=== PATIENT | female | born 1930 | race Caucasian/White ===

== ENCOUNTER 2017-03-11 10:24 | Day surgery (SDC) | payer OTHER ==
[2017-03-10 15:00] VITALS: BMI 23.0
[2017-03-11 13:28] VITALS: TEMP 97.6
[2017-03-11 13:44] VITALS: BP 140/60; PULSE 65
== END 2017-03-11 14:19 | disposition home or self-care (01) ==
LOC: JASU-ENDO 10:24
PROVIDERS: ATTEND Internal Medicine Gastroenterology
PROC: 0DJD8ZZ Inspection of Lower Intestinal Tract, Via Natural or Artificial Opening Endoscopic (ICD-10-PCS; principal; 2017-03-11 11:30)
DX: D64.9 Anemia, unspecified (principal); K64.8 Other hemorrhoids

== ENCOUNTER 2017-06-26 09:08 | Inpatient (IN) | payer OTHER ==
--- NOTE | 2017-06-26 09:35 | PDOC ---
History of Present Illness - General Chief Complaint: Pain, Acute Stated Complaint: POST-OP/ ABD PAIN Time Seen by Provider: 06/26/17 09:35 - History of Present Illness Initial Comments: 06/26/17 09:39 Ms. Gill is an 87 yo female with a significant past medical history of DM , Anemia, recent fall with clear head CT Friday and Lack of appetite with endoscopy Friday who presents to the emergency department with a 12 hour history of extreme abdominal pain at rest. She reports no other symptoms. The patient denies chest pain, shortness of breath, headache and dizziness. Denies fever, chills, nausea, vomit, diarrhea and constipation. Denies dysuria, frequency, urgency and hematuria. Allergies: NKDA Past surgical history: Denies Social history: Denies PMD - Dr. Cisneros Past History - Past Medical History Allergies/Adverse Reactions: Allergies Allergy/AdvReac Type Severity Reaction Status Date / Time No Known Allergies Allergy Verified 06/26/17 09:13 Home Medications: Ambulatory Orders Omeprazole 40 mg PO DAILY 03/10/17 Ascorbic Acid [Vitamin C] 500 mg PO DAILY 06/23/17 Ferrous Sulfate 325 mg PO DAILY 06/23/17 Glipizide 5 mg PO DAILY 06/23/17 Megestrol Acetate [Megace -] 40 mg PO DAILY 06/26/17 Metoclopramide HCl [Reglan] 5 mg PO TID 06/26/17 Nitrofurantoin Monohyd/M-Cryst [Macrobid -] 100 mg PO BID #28 capsule 06/26/17 Anemia: Yes (IRON DEFICIENCY) Diabetes: Yes (NIDDM) GI Disorders: Yes (GERD) - Immunization History Immunization Up to Date: Yes - Suicide/Smoking/Psychosocial Hx Smoking History: Never smoked Have you smoked in the past 12 months: No Hx Alcohol Use: No Drug/Substance Use Hx: No Substance Use Type: None Hx Substance Use Treatment: No Review of Systems - Review of Systems Comments:: 06/26/17 09:39 GENERAL/CONSTITUTIONAL: No fever or chills. No weakness. HEAD, EYES, EARS, NOSE AND THROAT: No change in vision. No ear pain or discharge. No sore throat. CARDIOVASCULAR: No chest pain or shortness of breath RESPIRATORY: No cough, wheezing, or hemoptysis. GASTROINTESTINAL: +Extreme abdominal pain at rest. No nausea, vomiting, diarrhea or constipation. GENITOURINARY: No dysuria, frequency, or change in urination. MUSCULOSKELETAL: No joint or muscle swelling or pain. No neck or back pain. SKIN: No rash NEUROLOGIC: No headache, vertigo, loss of consciousness, or change in strength/ sensation. ENDOCRINE: No increased thirst. No abnormal weight change HEMATOLOGIC/LYMPHATIC: No anemia, easy bleeding, or history of blood clots. ALLERGIC/IMMUNOLOGIC: No hives or skin allergy. *Physical Exam - Vital Signs Last Vital Signs Temp Pulse Resp BP Pulse Ox 98.1 F 88 18 146/63 98 06/26/17 09:13 06/26/17 09:13 06/26/17 09:13 06/26/17 09:13 06/26/17 09:13 - Physical Exam Comments: 06/26/17 09:39 GENERAL: Awake, alert, and fully oriented, in no acute distress HEAD: No signs of trauma, normocephalic, atraumatic EYES: PERRLA, EOMI, sclera anicteric, conjunctiva clear ENT: Auricles normal inspection, hearing grossly normal, nares patent, oropharynx clear without exudates. Moist mucosa NECK: Normal ROM, supple, no lymphadenopathy, JVD, or masses LUNGS: No distress, speaks full sentences, clear to auscultation bilaterally HEART: Regular rate and rhythm, normal S1 and S2, no murmurs, rubs or gallops, peripheral pulses normal and equal bilaterally. ABDOMEN: +Exquisitely tender with guarding. Soft, normoactive bowel sounds. No masses EXTREMITIES: Normal inspection, Normal range of motion, no edema. No clubbing or cyanosis. NEUROLOGICAL: Cranial nerves II through XII grossly intact. Normal speech, normal gait, no focal sensorimotor deficits SKIN: Warm, Dry, normal turgor, no rashes or lesions noted. ED Treatment Course - LABORATORY CBC & Chemistry Diagram: 06/26/17 09:46 06/26/17 09:46 Medical Decision Making - Medical Decision Making 06/26/17 13:49 Ms. Gill is an 87 yo patient presenting with severe abdominal pain. CT abdomen/pelvis done to rule out acute causes; patient was resting comfortably after 2 mg morphine until taking oral macrobid. Severe abdominal pain resumed after; will admit to [facility] for overnight observation for pain control. 06/26/17 14:02 06/26/17 14:02 *DC/Admit/Observation/Transfer Diagnosis at time of Disposition: Abdominal pain Qualifiers: Abdominal location: generalized Qualified Code(s): R10.84 - Generalized abdominal pain - Discharge Dispostion Admit: Yes - Prescriptions Prescriptions: Nitrofurantoin Monohyd/M-Cryst [Macrobid -] 100 mg PO BID #28 capsule - Referrals Referrals: Chapo Cisneros MD [Primary Care Provider] -
--- NOTE | 2017-06-26 09:38 | PDOC ---
Attending Attestation - Resident Resident Name: Jos Arauz - HPI HPI: 06/26/17 17:18 Pt presents to the ED complaining of the acute onset of abdominal pain after endoscopy. Denies nausea or vomiting. Having bowel movements. - Physicial Exam PE: 06/26/17 17:18 Abdomen diffusely tender with guarding but no rigidity or rebound. - Medical Decision Making 06/26/17 17:18 Pt presents to the ED with pain and tenderness after endoscopy. Concern for perforation, infection, less likely obstruction.
[2017-06-26] MEDS ORDERED: morphine CARPU-JECT 2 MG/1 ML DISP.SYRIN IVPUSH ONE ×2 (09:54→13:05)
[2017-06-26] MEDS ORDERED: SODIUM CHLORIDE 1,000 ML IV STA (09:58)
[2017-06-26] MEDS ORDERED: morphine CARPU-JECT 2 MG/1 ML DISP.SYRIN ONE (10:14)
[2017-06-26 10:20] LABS: BASOPHIL 1.4 % (0-2.0); MCH 24.2 pg (25.7-33.7); MCHC 31.7 g/dl (32.0-36.0); MEAN CELL VOLUME 76.6 fl (80-96); MEAN PLT VOLUME 7.6 fl (7.5-11.1); NEUTROPHILS 76.5 % (42.8-82.8); PLATELET COUNT 187 K/MM3 (134-434); RDW 21.8 % (11.6-15.6); WHITE BLOOD COUNT 8.3 K/mm3 (4.0-10.0)
[2017-06-26 10:53] LABS: ALBUMIN 2.5 g/dl (3.4-5.0); ALK PHOS 444 U/L (45-117); ANION GAP 11 (8-16); BILIRUBIN,TOTAL 1.4 mg/dL (0.2-1.0); CALCIUM 8.5 mg/dL (8.5-10.1); CO2 22 mmol/L (21-32); CREATININE 0.9 mg/dL (0.55-1.02); GLUCOSE,RANDOM 126 mg/dL (74-106); SGOT/AST 143 U/L (15-37); SGPT/ALT 121 U/L (12-78); TOT PROT 7.1 g/dl (6.4-8.2)
[2017-06-26 11:36] LABS: URINE APPEARANCE SLCLOUDY; URINE BILIRUBIN NEGATIVE (NEGATIVE); URINE BLOOD NEGATIVE (NEGATIVE); URINE COLOR AMBER; URINE GLUCOSE (UA) NEGATIVE (NEGATIVE); URINE KETONE NEGATIVE (NEGATIVE); URINE LEUK ESTERASE NEGATIVE (NEGATIVE); URINE NITRITE POSITIVE (NEGATIVE); URINE UROBILINOGEN NEGATIVE mg/dL (0.2-1.0)
[2017-06-26 11:38] LABS: URINE PROTEIN 1+ (NEGATIVE)
[2017-06-26 11:40] LABS: URINE BACTERIA MANY /hpf (NONE SEEN); URINE MUCUS RARE; URINE WBC 7 /hpf (3-5)
[2017-06-26] MEDS ORDERED: NITROFURANTOIN MACROCRYSTAL 50 MG CAPSULE (FP) PO SCH (12:30)
[2017-06-26] MEDS ORDERED: NITROFURANTOIN MACROCRYSTAL 50 MG CAPSULE (FP) ONE (12:57)
[2017-06-26] MEDS ORDERED: morphine CARPU-JECT 4 MG/1 ML DISP.SYRIN ONE (13:10)
--- NOTE | 2017-06-26 15:44 | EKG ---
Test Reason : Blood Pressure : / mmHG Vent. Rate : 073 BPM Atrial Rate : 073 BPM P-R Int : 166 ms QRS Dur : 086 ms QT Int : 420 ms P-R-T Axes : 031 -20 013 degrees QTc Int : 462 ms NORMAL SINUS RHYTHM NORMAL ECG WHEN COMPARED WITH ECG OF 09-MAY-2009 17:44, NO SIGNIFICANT CHANGE WAS FOUND Confirmed by JD COATS MD ([id number]) on 06/26/2017 3:44:36 PM Referred By: Confirmed By:JD COATS MD
[2017-06-26] MEDS ORDERED: SODIUM CHLORIDE 1,000 ML IV SCH (17:00)
--- NOTE | 2017-06-26 17:03 | HP ---
Admitting History and Physical - Primary Care Physician PCP: [facility] - Admission Chief Complaint: abdominal pain History of Present Illness: Ms. Gill is an 87 yo female with a significant past medical history of DM , Anemia,---is being admitted to the hospital when she presented to emergency room with the chief complaint of having abdominal pain for about 12 hours Patient had colonoscopy done yesterday In the emergency room patient had CAT scan done--which showed ascites and concern of primary hepatocellular carcinoma. there is also portal vein thrombosis Patient given morphine for the pain Liver enzymes are also elevated Patient being admitted for further monitoring I discussed with patients Daughter--who reports that she is having loss of appetite for last few months. Patient seen by me in the emergency room I also discussed case with emergency room physician Patient received morphine and at present comfortable daughter at bedside Patient denies chest pain or shortness of breath No fever or chills No bleeding. History Source: Family Member, Caregiver Limitations to Obtaining History: Clinical Condition - Smoking History Smoking history: Never smoked Have you smoked in the past 12 months: No - Alcohol/Substance Use Hx Alcohol Use: No Home Medications - Allergies Allergies/Adverse Reactions: Allergies Allergy/AdvReac Type Severity Reaction Status Date / Time No Known Allergies Allergy Verified 06/26/17 09:13 - Home Medications Home Medications: Ambulatory Orders Omeprazole 40 mg PO DAILY 03/10/17 Ascorbic Acid [Vitamin C] 500 mg PO DAILY 06/23/17 Ferrous Sulfate 325 mg PO DAILY 06/23/17 Glipizide 5 mg PO DAILY 06/23/17 Megestrol Acetate [Megace -] 40 mg PO DAILY 06/26/17 Metoclopramide HCl [Reglan] 5 mg PO TID 06/26/17 Nitrofurantoin Monohyd/M-Cryst [Macrobid -] 100 mg PO BID #28 capsule 06/26/17 Family Disease History - Family Disease History Family History: Unable to Obtain Review of Systems - Review of Systems Constitutional: reports: Loss of Appetite, Malaise, Unintentional Wgt. Loss, Weakness Eyes: reports: No Symptoms Neck: reports: No Symptoms Cardiovascular: reports: No Symptoms Respiratory: reports: No Symptoms Gastrointestinal: reports: Abdominal Pain, Nausea Genitourinary: reports: No Symptoms Neurological: reports: No Symptoms Psychiatric: reports: Anxiety Physical Examination Vital Signs: Vital Signs Temperature 98.1 F 06/26/17 09:13 Pulse Rate 88 06/26/17 09:13 Respiratory Rate 18 06/26/17 09:13 Blood Pressure 146/63 06/26/17 09:13 O2 Sat by Pulse Oximetry (%) 98 06/26/17 09:13 Constitutional: Yes: No Distress, Anxious Eyes: Yes: Conjunctiva Clear Neck: Yes: Supple, Trachea Midline Cardiovascular: Yes: Regular Rate and Rhythm Respiratory: Yes: CTA Bilaterally Gastrointestinal: Yes: Soft (very tender right upper quadrant. No rebound Bowel sounds present) Edema: No Neurological: Yes: Alert Psychiatric: Yes: Alert Imaging - Results Chest X-ray: Report Reviewed Cat Scan: Report Reviewed Problem List - Problems (1) Abdominal pain Code(s): R10.9 - UNSPECIFIED ABDOMINAL PAIN Qualifiers: Qualified Code(s): R10.84 - Generalized abdominal pain (2) Hepatocellular carcinoma Code(s): C22.0 - LIVER CELL CARCINOMA (3) Portal vein thrombosis Code(s): I81 - PORTAL VEIN THROMBOSIS (4) Ascites Code(s): R18.8 - OTHER ASCITES (5) Diabetes Code(s): E11.9 - TYPE 2 DIABETES MELLITUS WITHOUT COMPLICATIONS Assessment/Plan admit to [facility]. Orders written. pain most likely due to hepatocellular carcinoma--- likely primary Needs further workup ultrasound liver GI consult Pain control Clear liquid diet Zofran for nausea Will not treat portal vein thrombosis with anticoagulations as risk of bleeding is high Monitor blood sugar Overall condition guarded/ due to advanced age Discussed with patient's daughter also was bedside I also discussed with patient's primary doctor Further recommendations will be guided by clinical course
[2017-06-26] MEDS ORDERED: ONDANSETRON 4 MG/2 ML VIAL IVPB PRN (17:12)
[2017-06-26] MEDS: morphine CARPU-JECT 2 MG/1 ML DISP.SYRIN IVPUSH PRN (20:22)
[2017-06-26] MEDS: HEPARIN NA (PORCINE) 5,000 UNITS/ML 1ML VIAL SQ SCH (22:45)
[2017-06-27] MEDS: INSULIN SLIDING SCALE (NOVOLOG) 1 VIAL SQ SCH ×3 (06:21→17:40)
[2017-06-27 06:41] VITALS: BMI 21.4
[2017-06-27 08:14] LABS: BASOPHIL 1.1 % (0-2.0); EOSINOPHIL 1.1 % (0-4.5); MCHC 30.9 g/dl (32.0-36.0); MEAN CELL VOLUME 77.7 fl (80-96); MEAN PLT VOLUME 7.6 fl (7.5-11.1); NEUTROPHILS 78.7 % (42.8-82.8); PLATELET COUNT 148 K/MM3 (134-434); RDW 20.9 % (11.6-15.6); WHITE BLOOD COUNT 6.8 K/mm3 (4.0-10.0)
[2017-06-27 08:26] LABS: INR 1.42 (0.82-1.09); PROTHROMBIN TIME (PATIENT) 15.7 SEC (9.98-11.88)
[2017-06-27 08:55] LABS: ALBUMIN 2.1 g/dl (3.4-5.0); ANION GAP 11 (8-16); CALCIUM 7.6 mg/dL (8.5-10.1); CO2 21 mmol/L (21-32); CREATININE 0.8 mg/dL (0.55-1.02); GLUCOSE,RANDOM 73 mg/dL (74-106); MAGNESIUM 1.9 mg/dL (1.8-2.4); SGOT/AST 116 U/L (15-37); SGPT/ALT 100 U/L (12-78)
[2017-06-27 08:57] LABS: ALK PHOS 410 U/L (45-117); BILIRUBIN,TOTAL 1.9 mg/dL (0.2-1.0); TOT PROT 6.3 g/dl (6.4-8.2)
[2017-06-27] MEDS: HEPARIN NA (PORCINE) 5,000 UNITS/ML 1ML VIAL SQ SCH ×2 (10:25→21:20)
--- NOTE | 2017-06-27 11:27 | PN ---
Progress Note (short form) - Note Progress Note: patient seen and examined today Family at bedside Looks better still having a lot of pain Vital Signs Temp 97.5 F L 06/27/17 08:40 Pulse 78 06/27/17 08:40 Resp 14 06/27/17 08:40 BP 116/58 06/27/17 08:40 Pulse Ox 98 06/26/17 22:00 Intake & Output 06/26/17 06/26/17 06/27/17 11:59 23:59 11:59 Intake Total 532 664 Balance 532 664 Weight 120 lb 120 lb 12.8 oz Intake: IV 332 664 Normal Saline - 1,000 ml 332 664 @ 83 mls/hr IV [facility] Rx#:[id number] Oral 200 Other: Voiding Method Toilet Toilet # Unmeasured Voids Void 2 2 Bowel Movement No Height 5 ft 3 in 5 ft 3 in Body Mass Index (BMI) 21.2 21.4 Weight Measurement Method Est/Stated by Patient Active Medications Heparin Sodium (Porcine) (Heparin -) 5,000 unit SQ BID [facility] Last Admin: 06/27/17 10:25 Dose: 5,000 unit Potassium Chloride/Dextrose/Sod Cl (D5-1/2ns+20 Meq Kcl -) 1,000 mls @ 100 mls/ hr IV [facility] Insulin Aspart (Novolog Vial Sliding Scale -) 1 vial SQ TIDAC [facility] PRN Reason: Protocol Last Admin: 06/27/17 06:21 Dose: Not Given Morphine Sulfate (Morphine Injection -) 2 mg IVPUSH Q4H PRN PRN Reason: PAIN LEVEL 6-10 Last Admin: 06/26/17 20:22 Dose: 2 mg Ondansetron HCl (Zofran Injection) 4 mg IVPB Q6H PRN PRN Reason: NAUSEA CBC, BMP 06/27/17 07:00 06/27/17 07:00 u/s noted Physical Examination Constitutional: Yes: No Distress, Anxious Eyes: Yes: Conjunctiva Clear Neck: Yes: Supple, Trachea Midline Cardiovascular: Yes: Regular Rate and Rhythm Respiratory: Yes: CTA Bilaterally Gastrointestinal: Yes: Soft (very tender right upper quadrant. No rebound Bowel sounds present)--not letting me touch Edema: No Neurological: Yes: Alert Psychiatric: Yes: Alert Imaging - Results Chest X-ray: Report Reviewed Cat Scan: Report Reviewed Problem List - Problems (1) Abdominal pain Code(s): R10.9 - UNSPECIFIED ABDOMINAL PAIN Qualifiers: Qualified Code(s): R10.84 - Generalized abdominal pain (2) Hepatocellular carcinoma Code(s): C22.0 - LIVER CELL CARCINOMA (3) Portal vein thrombosis Code(s): I81 - PORTAL VEIN THROMBOSIS (4) Ascites Code(s): R18.8 - OTHER ASCITES (5) Diabetes Code(s): E11.9 - TYPE 2 DIABETES MELLITUS WITHOUT COMPLICATIONS Assessment/Plan clinically same extensive talk with the patient's family--Spent about 30 minutes in discussion-- Patient' daughter/son goal of care/etc. discussed Patient's family would like to get oncology consult for now not eating well--but wants to read advance diet Change fluids--to D5 Pain control Will follow. GI to follow Problem List - Problems (1) Abdominal pain Code(s): R10.9 - UNSPECIFIED ABDOMINAL PAIN Qualifiers: Qualified Code(s): R10.84 - Generalized abdominal pain (2) Hepatocellular carcinoma Code(s): C22.0 - LIVER CELL CARCINOMA (3) Portal vein thrombosis Code(s): I81 - PORTAL VEIN THROMBOSIS (4) Ascites Code(s): R18.8 - OTHER ASCITES (5) Diabetes Code(s): E11.9 - TYPE 2 DIABETES MELLITUS WITHOUT COMPLICATIONS
[2017-06-27] MEDS: morphine CARPU-JECT 2 MG/1 ML DISP.SYRIN IVPUSH PRN ×2 (13:46→19:47)
[2017-06-27] MEDS ORDERED: DEXAMETHASONE SOD PHOSPHATE 4 MG/1 ML VIAL IVPB ONE (15:38)
[2017-06-27] MEDS: D5-1/2NS+20 MEQ KCL - 1,000 ML IV SCH (16:08)
--- NOTE | 2017-06-27 17:26 | CONSULT ---
Consult Consult Specialty:: Oncology Reason for Consultation:: Image finding of possible Primary HCC - History of Present Illness Chief Complaint: Abdominal pain History of Present Illness: Ms. Gill is an 87 yo female with a significant past medical history of DM , Anemia, recent fall Friday with clear head CT Friday and Lack of appetite with endoscopy Friday who presents to the emergency department with a 12 hour history of extreme abdominal pain at rest. She reports no other symptoms. The patient denies chest pain, shortness of breath, headache and dizziness. Denies fever, chills, nausea, vomit, diarrhea and constipation. Denies dysuria, frequency, urgency and hematuria. Being w/u for weght loss , anemia , s.p egd , colonoscopy, with EGD w/ varices. Patient seen and examined. Family at bedside. pT in pain - History Source History Provided By: Patient, Family Member, Medical Record - Alcohol/Substance Use Hx Alcohol Use: No - Smoking History Smoking history: Never smoked Have you smoked in the past 12 months: No Home Medications - Allergies Allergies/Adverse Reactions: Allergies Allergy/AdvReac Type Severity Reaction Status Date / Time No Known Allergies Allergy Verified 06/26/17 09:13 - Home Medications Home Medications: Ambulatory Orders Omeprazole 40 mg PO DAILY 03/10/17 Ascorbic Acid [Vitamin C] 500 mg PO DAILY 06/23/17 Ferrous Sulfate 325 mg PO DAILY 06/23/17 Glipizide 5 mg PO DAILY 06/23/17 Megestrol Acetate [Megace -] 40 mg PO DAILY 06/26/17 Metoclopramide HCl [Reglan] 5 mg PO TID 06/26/17 Nitrofurantoin Monohyd/M-Cryst [Macrobid -] 100 mg PO BID #28 capsule 06/26/17 Review of Systems - Review of Systems Constitutional: reports: Malaise, Unintentional Wgt. Loss HENT: reports: No Symptoms Gastrointestinal: reports: Abdominal Pain Physical Exam Vital Signs: Vital Signs Temperature 98.0 F 06/27/17 14:56 Pulse Rate 82 06/27/17 14:56 Respiratory Rate 18 06/27/17 14:56 Blood Pressure 112/60 06/27/17 14:56 O2 Sat by Pulse Oximetry (%) 96 06/27/17 09:00 Constitutional: Yes: Anxious, Moderate Distress HENT: Yes: Other (bruise around the right eye) Neck: Yes: Supple Cardiovascular: Yes: Regular Rate and Rhythm Respiratory: Yes: Regular (RUQ tenderness, distended abdomen) Edema: No Labs: CBC, BMP 06/27/17 07:00 06/27/17 07:00 Imaging - Results Cat Scan: Report Reviewed, Image Reviewed Assessment/Plan New diagnosis of metastatic cancer ( image evidence ) in and elderly woman with poor PS I have spent close to 60minutes with the family members with permission from the pt ( daughter in law, grandsons and would be grand daughter in law). I have discussed the following : -The likely diagnosis of metastatic cancer with abnormal LFTs, coags and causing portal vein thrombus , splenomegaly in turn causing the abdominal pain and ascites. -The treatment of portal vein thrombosis was discussed , which includes the initiation of systemic Ac eg with lovenox. Explained in detail of the risks of doing so would put her at high risk of bleeding daryl in the setting of liver disease/splenomegaly and coagulopathy. -The definitive diagnosis needs of a malignancy is through a biopsy. Also have explained that she would be poor candidate for systemic Rx -The ascites could be assessed for drainage for palliation purpose and the possibility of a catheter placement for palliation after reversal of the INR. -Best supportive care focussing on comfort and pain control given advanced age and quality of life -They have not discussed with the pt in the past about advance directives and the pt presently was in pain to discuss. -The part of the family that I have discussed asked me first to help her pain and the decision on the other they mentioned that have to discuss with all the other family members before taking a decision. -for pain control, i have ordered dex 4mg q12h IV so that it would help the pain daryl in the RUQ while continuing the morphine. -For lab work -If Best supportive care is decided, palliative care to be consulted. Have discussed this with over phone and also communicated with RN.
--- NOTE | 2017-06-27 19:26 | CON.GI ---
Consult Consult Specialty:: GI Referred by:: [facility] Reason for Consultation:: abdominal pain - History of Present Illness Chief Complaint: abdominal pain History of Present Illness: 87 F with h/o DM and anemia who had EGD and colonoscopy as outpatient on 06/24 to evaluate abdominal pain and weight loss over the past several months. The EGD revealed varices and a subsequent CT revealed what appears to be significant mets to the liver from an as yet unknown primary although there is a questionable renal mass and a pascual-pancreatic mass. Her family is present. There was some thought initially that her pain might have been due to a perforation from the procedures, but CT showed no evidence of that, with no free air present in the abdomen. - History Source History Provided By: Family Member, Medical Record - Alcohol/Substance Use Hx Alcohol Use: No - Smoking History Smoking history: Never smoked Have you smoked in the past 12 months: No Home Medications - Allergies Allergies/Adverse Reactions: Allergies Allergy/AdvReac Type Severity Reaction Status Date / Time No Known Allergies Allergy Verified 06/26/17 09:13 - Home Medications Home Medications: Ambulatory Orders Omeprazole 40 mg PO DAILY 03/10/17 Ascorbic Acid [Vitamin C] 500 mg PO DAILY 06/23/17 Ferrous Sulfate 325 mg PO DAILY 06/23/17 Glipizide 5 mg PO DAILY 06/23/17 Megestrol Acetate [Megace -] 40 mg PO DAILY 06/26/17 Metoclopramide HCl [Reglan] 5 mg PO TID 06/26/17 Nitrofurantoin Monohyd/M-Cryst [Macrobid -] 100 mg PO BID #28 capsule 06/26/17 Physical Exam-GI Vital Signs: Vital Signs Temperature 98.0 F 06/27/17 14:56 Pulse Rate 82 06/27/17 14:56 Respiratory Rate 18 06/27/17 14:56 Blood Pressure 112/60 06/27/17 14:56 O2 Sat by Pulse Oximetry (%) 96 06/27/17 09:00 Constitutional: Yes: Well Nourished Cardiovascular: Yes: Regular Rate and Rhythm Respiratory: Yes: CTA Bilaterally ...Auscultate: Yes: Normoactive Bowel Sounds Neurological: Yes: Confusion Labs: CBC, BMP 06/27/17 07:00 06/27/17 07:00 INR, PTT INR 1.42 (0.82-1.09) H 06/27/17 07:00 Imaging - Results Cat Scan: Report Reviewed (as noted) Assessment/Plan 87 F with above history now with what appears to be a newly diagnosed metastatic malignancy. Recommend ongoing pain meds for likely cancer-related pain. Oncology f/u and goals of care need to be defined. Will see prn
[2017-06-28] MEDS: INSULIN SLIDING SCALE (NOVOLOG) 1 VIAL SQ SCH ×3 (06:43→17:07)
[2017-06-28] MEDS ORDERED: INSULIN (NOVOLOG) ASPART 100 UNITS/ML 10ML VIAL ONE (07:02)
[2017-06-28 08:09] LABS: BASOPHIL 0.5 % (0-2.0); EOSINOPHIL 0.5 % (0-4.5); MCH 24.4 pg (25.7-33.7); MCHC 31.6 g/dl (32.0-36.0); MEAN CELL VOLUME 77.3 fl (80-96); MEAN PLT VOLUME 7.5 fl (7.5-11.1); NEUTROPHILS 78.1 % (42.8-82.8); PLATELET COUNT 161 K/MM3 (134-434); WHITE BLOOD COUNT 7.1 K/mm3 (4.0-10.0)
[2017-06-28 08:37] LABS: INR 1.53 (0.82-1.09)
[2017-06-28 08:40] LABS: ACTIVATED PTT 30.7 SECONDS (26.9-34.4)
[2017-06-28 09:04] LABS: ANION GAP 8 (8-16); BILIRUBIN,TOTAL 1.2 mg/dL (0.2-1.0); CALCIUM 7.3 mg/dL (8.5-10.1); CO2 23 mmol/L (21-32); CREATININE 0.9 mg/dL (0.55-1.02); GLUCOSE,RANDOM 200 mg/dL (74-106); SGOT/AST 113 U/L (15-37); SGPT/ALT 100 U/L (12-78); TOT PROT 6.2 g/dl (6.4-8.2)
[2017-06-28 09:05] LABS: ALK PHOS 401 U/L (45-117)
[2017-06-28] MEDS: HEPARIN NA (PORCINE) 5,000 UNITS/ML 1ML VIAL SQ SCH (10:50)
[2017-06-28] MEDS: DEXAMETHASONE SOD PHOSPHATE 4 MG/1 ML VIAL IVPB SCH ×2 (10:50→22:36)
[2017-06-28] MEDS: D5-1/2NS+20 MEQ KCL - 1,000 ML IV SCH ×2 (12:18→17:06)
[2017-06-28] MEDS ORDERED: PT OWN MED DRAWER 7, Y5N ONE (13:21)
[2017-06-28] MEDS: morphine CARPU-JECT 2 MG/1 ML DISP.SYRIN IVPUSH PRN ×2 (13:26→22:31)
--- NOTE | 2017-06-28 13:50 | PN ---
Progress Note (short form) - Note Progress Note: pt seen/ examined says pain better- but still hurts a lot all f/u noted. oncology consult noted--had discussed yesterday. Vital Signs Temp 98.6 F 06/28/17 10:00 Pulse 70 06/28/17 10:00 Resp 18 06/28/17 10:00 BP 130/72 06/28/17 10:00 Pulse Ox 97 06/27/17 21:00 Intake & Output 06/27/17 06/28/17 06/28/17 23:59 11:59 23:59 Intake Total 720 1625 Balance 720 1625 Intake: IV 1200 D5-1/2Ns+20 Meq KCl - 1, 1200 000 ml @ 100 mls/hr IV [facility] Rx#:[id number] Oral 720 425 Other: Voiding Method Toilet Toilet # Unmeasured Voids Void 1 2 Bowel Movement No No Active Medications Dexamethasone Sodium Phosphate (Decadron Injection -) 4 mg IVPB BID [facility] Stop: 07/02/17 10:00 Last Admin: 06/28/17 10:50 Dose: 4 mg Heparin Sodium (Porcine) (Heparin -) 5,000 unit SQ BID [facility] Last Admin: 06/28/17 10:50 Dose: 5,000 unit Potassium Chloride/Dextrose/Sod Cl (D5-1/2ns+20 Meq Kcl -) 1,000 mls @ 100 mls/ hr IV [facility] Last Admin: 06/28/17 12:18 Dose: Not Given Insulin Aspart (Novolog Vial Sliding Scale -) 1 vial SQ TIDAC [facility] PRN Reason: Protocol Last Admin: 06/28/17 12:16 Dose: Not Given Morphine Sulfate (Morphine Injection -) 2 mg IVPUSH Q4H PRN PRN Reason: PAIN LEVEL 6-10 Last Admin: 06/28/17 13:26 Dose: 2 mg Ondansetron HCl (Zofran Injection) 4 mg IVPB Q6H PRN PRN Reason: NAUSEA CBC, BMP 06/28/17 07:00 06/28/17 07:00 Physical Examination Constitutional: Yes: No Distress, comfortable Eyes: Yes: Conjunctiva Clear Neck: Yes: Supple, Trachea Midline Cardiovascular: Yes: Regular Rate and Rhythm Respiratory: Yes: CTA Bilaterally Gastrointestinal: Yes: Soft (tender right upper quadrant. No rebound Bowel sounds present)-- Edema: No Neurological: Yes: Alert Psychiatric: Yes: Alert Imaging - Results Chest X-ray: Report Reviewed Cat Scan: Report Reviewed Assessment/Plan clinically litttle better eating better- a little continue fluids steroids gi prophylaxis add basal insulin Problem List - Problems (1) Abdominal pain Code(s): R10.9 - UNSPECIFIED ABDOMINAL PAIN Qualifiers: Qualified Code(s): R10.84 - Generalized abdominal pain (2) Hepatocellular carcinoma Code(s): C22.0 - LIVER CELL CARCINOMA (3) Portal vein thrombosis Code(s): I81 - PORTAL VEIN THROMBOSIS (4) Ascites Code(s): R18.8 - OTHER ASCITES (5) Diabetes Code(s): E11.9 - TYPE 2 DIABETES MELLITUS WITHOUT COMPLICATIONS
--- NOTE | 2017-06-28 21:22 | PN ---
Progress Note (short form) - Note Progress Note: Patient seen and exained Denies any complaints Last Vital Signs Temp Pulse Resp BP Pulse Ox 98.1 F 90 18 125/75 98 06/28/17 18:00 06/28/17 18:00 06/28/17 18:00 06/28/17 18:00 06/28/17 09:00 Cor: RSR, No murmurs, No gallops Lungs: Clear to P&A Abd: Soft, Normal bowel sounds, No organomegaly Ext:No significant edema Skin: No rashes, Integument intact Abnormal Lab Results 06/28/17 06/28/17 06/28/17 07:00 07:00 07:00 Hgb 8.8 L Hct 27.9 L MCV 77.3 L MCH 24.4 L MCHC 31.6 L RDW 21.0 H PT with INR 17.00 H INR 1.53 H Random Glucose 200 H D Calcium 7.3 L Total Bilirubin 1.2 H D AST 113 H ALT 100 H Alkaline Phosphatase 401 H Total Protein 6.2 L Albumin 2.0 L Active Medications Generic Name Dose Route Start Last Admin Trade Name Freq PRN Reason Stop Dose Admin Dexamethasone Sodium Phosphate 4 mg 06/28/17 10:00 06/28/17 10:50 Decadron Injection - IVPB 07/02/17 10:00 4 mg BID [facility] Administration Potassium Chloride/Dextrose/Sod Cl 1,000 mls @ 100 mls/hr 06/27/17 11:30 17:06 D5-1/2ns+20 Meq Kcl - IV 100 mls/hr [facility] Administration Insulin Aspart 1 vial 06/27/17 07:00 06/28/17 17:07 Novolog Vial Sliding Scale - SQ 7 units TIDAC [facility] Administration Protocol Insulin Detemir 10 units 06/28/17 22:00 Levemir Vial SQ HS [facility] Morphine Sulfate 2 mg 06/26/17 16:51 06/28/17 13:26 Morphine Injection - IVPUSH 2 mg Q4H PRN Administration PAIN LEVEL 6-10 Ondansetron HCl 4 mg 06/26/17 17:12 Zofran Injection IVPB Q6H PRN NAUSEA A/P 87 y/o patient with New diagnosis of metastatic cancer by imaging . elderly woman with poor PS Patients daughter called today she is in agreement with planned paracentesis on Friday discussed about lovenox for portal vein thrombosis and SMV thrombosis. Pain control will discuss ith IR regarding palliative procedures? paracentesis palliative care consult
[2017-06-28] MEDS: INSULIN DETEMIR 100 UNITS/ML MDV SQ SCH (22:36)
[2017-06-28] MEDS: ENOXAPARIN NA (PORCINE) 60 MG/0.6 ML DISP.SYRIN SQ SCH (22:37)
[2017-06-29] MEDS: D5-1/2NS+20 MEQ KCL - 1,000 ML IV SCH ×2 (03:07→11:33)
[2017-06-29] MEDS ORDERED: INSULIN (NOVOLOG) ASPART 100 UNITS/ML 10ML VIAL ONE ×2 (06:06→06:33)
[2017-06-29] MEDS: INSULIN SLIDING SCALE (NOVOLOG) 1 VIAL SQ SCH ×3 (06:13→17:28)
[2017-06-29 08:06] LABS: BASOPHIL 0.8 % (0-2.0); MCH 24.4 pg (25.7-33.7); MCHC 31.5 g/dl (32.0-36.0); MEAN CELL VOLUME 77.3 fl (80-96); MEAN PLT VOLUME 8.1 fl (7.5-11.1); NEUTROPHILS 83.9 % (42.8-82.8); PLATELET COUNT 138 K/MM3 (134-434); WHITE BLOOD COUNT 6.4 K/mm3 (4.0-10.0)
[2017-06-29 08:31] LABS: INR 1.46 (0.82-1.09); PROTHROMBIN TIME (PATIENT) 16.2 SEC (9.98-11.88)
[2017-06-29 08:35] LABS: ALK PHOS 350 U/L (45-117); ANION GAP 8 (8-16); BILIRUBIN,TOTAL 0.8 mg/dL (0.2-1.0); CALCIUM 7.4 mg/dL (8.5-10.1); CO2 24 mmol/L (21-32); CREATININE 0.8 mg/dL (0.55-1.02); GLUCOSE,RANDOM 216 mg/dL (74-106); SGOT/AST 98 U/L (15-37); SGPT/ALT 93 U/L (12-78); TOT PROT 5.9 g/dl (6.4-8.2)
[2017-06-29] MEDS: ENOXAPARIN NA (PORCINE) 60 MG/0.6 ML DISP.SYRIN SQ SCH ×2 (09:35→21:26)
[2017-06-29] MEDS: DEXAMETHASONE SOD PHOSPHATE 4 MG/1 ML VIAL IVPB SCH ×2 (09:36→21:26)
--- NOTE | 2017-06-29 15:06 | PN ---
Progress Note (short form) - Note Progress Note: pt seen/ examined says pain better- family at bedside oncology f/u noted--. Vital Signs Temp 98.0 F 06/29/17 14:46 Pulse 82 06/29/17 14:46 Resp 18 06/29/17 09:36 BP 136/70 06/29/17 14:46 Pulse Ox 100 06/29/17 09:00 Intake & Output 06/28/17 06/29/17 06/29/17 23:59 11:59 23:59 Intake Total 1755 1525 450 Balance 1755 1525 450 Intake: IV 1000 1100 D5-1/2Ns+20 Meq KCl - 1, 1000 1100 000 ml @ 100 mls/hr IV [facility] Rx#:[id number] IVPB 50 Oral 705 425 450 Other: Voiding Method Toilet Toilet # Unmeasured Voids Void 1 2 3 Bowel Movement No No No CBC, BMP 06/29/17 07:30 06/29/17 07:30 INR, PTT INR 1.46 (0.82-1.09) H 06/29/17 07:30 Fibrinogen 337.0 mg/dL (238-498) 06/29/17 07:30 Physical Examination Constitutional: Yes: No Distress, comfortable. Eyes: Yes: Conjunctiva Clear Neck: Yes: Supple, Trachea Midline Cardiovascular: Yes: Regular Rate and Rhythm Respiratory: Yes: CTA Bilaterally Gastrointestinal: Yes: Soft (tender right upper quadrant. No rebound Bowel sounds present)-- Edema: No Neurological: Yes: Alert Psychiatric: Yes: Alert Imaging - Results Chest X-ray: Report Reviewed Cat Scan: Report Reviewed Assessment/Plan clinically better eating better- d/c fluids steroids gi prophylaxis monitor bgm. paracentesis tomorrow. will follow discussed with pts daughter again today. Problem List - Problems (1) Abdominal pain Code(s): R10.9 - UNSPECIFIED ABDOMINAL PAIN Qualifiers: Qualified Code(s): R10.84 - Generalized abdominal pain; R10.84 - Generalized abdominal pain (2) Hepatocellular carcinoma Code(s): C22.0 - LIVER CELL CARCINOMA (3) Portal vein thrombosis Code(s): I81 - PORTAL VEIN THROMBOSIS (4) Ascites Code(s): R18.8 - OTHER ASCITES (5) Diabetes Code(s): E11.9 - TYPE 2 DIABETES MELLITUS WITHOUT COMPLICATIONS
[2017-06-29] MEDS: morphine CARPU-JECT 2 MG/1 ML DISP.SYRIN IVPUSH PRN (19:40)
[2017-06-29] MEDS: INSULIN DETEMIR 100 UNITS/ML MDV SQ SCH (21:26)
--- NOTE | 2017-06-29 22:39 | PN ---
Progress Note (short form) - Note Progress Note: Patient seen and exained Pain improved feels better than yesterday But very reluctant to get abdominal exam /RUQ tenderness ongoing AFVSS Cor: RSR, No murmurs, No gallops Lungs: Clear to P&A Abd: Soft, Normal bowel sounds, No organomegaly Ext:No significant edema Skin: No rashes, Integument intact Labs/meds reviewed A/P 87 y/o patient with New diagnosis of metastatic cancer by imaging . elderly woman with poor PS discussed about lovenox for portal vein thrombosis and SMV thrombosis. Pain control will discuss ith IR regarding palliative procedures? paracentesis discussed with daughter/daughter in law, they are concerned about further investigation/invasive w/u but have not yet decided on goals of care. will continue ongoing discussions regarding goals of care. Palliative care team
[2017-06-30] MEDS: INSULIN SLIDING SCALE (NOVOLOG) 1 VIAL SQ SCH ×3 (06:01→17:29)
[2017-06-30 07:47] LABS: BASOPHIL 0.4 % (0-2.0); EOSINOPHIL 0.1 % (0-4.5); MCHC 31.1 g/dl (32.0-36.0); MEAN CELL VOLUME 77.1 fl (80-96); MEAN PLT VOLUME 8.2 fl (7.5-11.1); NEUTROPHILS 80.7 % (42.8-82.8); PLATELET COUNT 159 K/MM3 (134-434); RDW 21.1 % (11.6-15.6); WHITE BLOOD COUNT 7.2 K/mm3 (4.0-10.0)
[2017-06-30 08:09] LABS: INR 1.39 (0.82-1.09); PROTHROMBIN TIME (PATIENT) 15.4 SEC (9.98-11.88)
[2017-06-30 08:12] LABS: ACTIVATED PTT 33.3 SECONDS (26.9-34.4)
[2017-06-30] MEDS: ENOXAPARIN NA (PORCINE) 60 MG/0.6 ML DISP.SYRIN SQ SCH ×2 (09:31→21:37)
[2017-06-30] MEDS: PHYTONADIONE 10 MG/1 ML AMP SQ SCH (09:31)
[2017-06-30] MEDS: DEXAMETHASONE SOD PHOSPHATE 4 MG/1 ML VIAL IVPB SCH ×2 (09:52→21:37)
--- NOTE | 2017-06-30 12:18 | PN ---
Progress Note (short form) - Note Progress Note: Pt comfortable overall condition same family at bedside Vital Signs Temp 98.0 F 06/30/17 09:58 Pulse 73 06/30/17 09:58 Resp 20 06/30/17 09:58 BP 137/72 06/30/17 09:58 Pulse Ox 99 06/29/17 21:00 Intake & Output 06/29/17 06/30/17 06/30/17 23:59 11:59 23:59 Intake Total 1050 50 Balance 1050 50 Intake: IV 500 D5-1/2Ns+20 Meq KCl - 1, 500 000 ml @ 100 mls/hr IV ASDIR [facility] Rx#:[id number] IVPB 100 50 Oral 450 Other: Voiding Method Toilet Toilet # Unmeasured Voids Void 1 1 Bowel Movement Yes Active Medications Dexamethasone Sodium Phosphate (Decadron Injection -) 4 mg IVPB BID [facility] Stop: 07/02/17 10:00 Last Admin: 06/30/17 09:52 Dose: 4 mg Enoxaparin Sodium (Lovenox -) 50 mg SQ BID [facility] Last Admin: 06/30/17 09:31 Dose: 50 mg Insulin Aspart (Novolog Vial Sliding Scale -) 1 vial SQ TIDAC [facility] PRN Reason: Protocol Last Admin: 06/30/17 12:15 Dose: Not Given Insulin Detemir (Levemir Vial) 10 units SQ HS [facility] Last Admin: 06/29/17 21:26 Dose: 10 units Morphine Sulfate (Morphine Injection -) 2 mg IVPUSH Q4H PRN PRN Reason: PAIN LEVEL 6-10 Last Admin: 06/29/17 19:40 Dose: 2 mg Ondansetron HCl (Zofran Injection) 4 mg IVPB Q6H PRN PRN Reason: NAUSEA Phytonadione (Aqua Mephyton Injection -) 5 mg SQ DAILY [facility] Stop: 07/03/17 09:59 Last Admin: 06/30/17 09:31 Dose: 5 mg CBC, BMP 06/30/17 07:00 06/29/17 07:30 Physical Examination Constitutional: Yes: No Distress, comfortable. Eyes: Yes: Conjunctiva Clear Neck: Yes: Supple, Trachea Midline Cardiovascular: Yes: Regular Rate and Rhythm Respiratory: Yes: CTA Bilaterally Gastrointestinal: Yes: Soft (tender right upper quadrant. No rebound Bowel sounds present)-- Edema: No Neurological: Yes: Alert Psychiatric: Yes: Alert Imaging - Results Chest X-ray: Report Reviewed Cat Scan: Report Reviewed Assessment/Plan extensive talk with family overall prognosis poor- considering age family requesting d/c home comgfort care/ discussed with hospice case manager/ nursing staff. will discharge later today/ tomorrow when home arrangements are made hospice eval./ palliative care consult will follow Problem List - Problems (1) Abdominal pain Code(s): R10.9 - UNSPECIFIED ABDOMINAL PAIN Qualifiers: Qualified Code(s): R10.84 - Generalized abdominal pain; R10.84 - Generalized abdominal pain (2) Hepatocellular carcinoma Code(s): C22.0 - LIVER CELL CARCINOMA (3) Portal vein thrombosis Code(s): I81 - PORTAL VEIN THROMBOSIS (4) Ascites Code(s): R18.8 - OTHER ASCITES (5) Diabetes Code(s): E11.9 - TYPE 2 DIABETES MELLITUS WITHOUT COMPLICATIONS
[2017-06-30 14:12] LABS: HEP B SURFACE AB Non Reactive (.)
[2017-06-30] MEDS ORDERED: morphine CARPU-JECT 4 MG/1 ML DISP.SYRIN ONE (15:07)
[2017-06-30] MEDS: morphine CARPU-JECT 2 MG/1 ML DISP.SYRIN IVPUSH PRN (15:10)
[2017-06-30] MEDS: INSULIN DETEMIR 100 UNITS/ML MDV SQ SCH (21:37)
[2017-07-01] MEDS: INSULIN SLIDING SCALE (NOVOLOG) 1 VIAL SQ SCH ×2 (06:01→11:28)
[2017-07-01 06:39] VITALS: PULSE 66
[2017-07-01] MEDS: ENOXAPARIN NA (PORCINE) 60 MG/0.6 ML DISP.SYRIN SQ SCH (09:33)
[2017-07-01] MEDS: PHYTONADIONE 10 MG/1 ML AMP SQ SCH (09:33)
[2017-07-01] MEDS: DEXAMETHASONE SOD PHOSPHATE 4 MG/1 ML VIAL IVPB SCH (09:57)
[2017-07-01 10:31] VITALS: BP 136/67; TEMP 97.2
--- NOTE | 2017-07-01 11:12 | DS ---
Physical Examination Vital Signs: Vital Signs Temperature 97.2 F L 07/01/17 10:00 Pulse Rate 66 07/01/17 10:00 Respiratory Rate 18 07/01/17 10:00 Blood Pressure 136/67 07/01/17 10:00 O2 Sat by Pulse Oximetry (%) 100 06/30/17 21:00 Constitutional: Yes: No Distress, Calm Cardiovascular: Yes: Regular Rate and Rhythm Respiratory: Yes: Diminished Gastrointestinal: Yes: Soft, Ascites, Distention, Tenderness Edema: Yes Labs: CBC, BMP 06/30/17 07:00 06/29/17 07:30 Discharge Summary Reason For Visit: ABDOMINAL PAIN Current Active Problems Abdominal pain (Acute) Ascites (Acute) Diabetes (Acute) Hepatocellular carcinoma (Acute) Portal vein thrombosis (Acute) Hospital Course: Admitted for intractable abdominal pain Found to have metastatic cancer on CT abd/pelvis, portal vein thrombosis She has high coagulopathy, acsities due to metastatic lesions-- primary not known Family does not want her to go through aggressive procedures like paracentesis or any diagnostic procedures at this time they all want palliative care will discontinue Lovenox as well as it would put her at increased bleeding and would not bring her comfort She will dc to home on home hospice care-- will be on pain meds and medications to keep her comfortable. Condition: Guarded - Instructions Diet, Activity, Other Instructions: home hospice Referrals: Chapo Cisneros MD [Primary Care Provider] - Disposition: HOME - Home Medications Comprehensive Discharge Medication List: Ambulatory Orders Omeprazole 40 mg PO DAILY 03/10/17 Ascorbic Acid [Vitamin C] 500 mg PO DAILY 06/23/17 Ferrous Sulfate 325 mg PO DAILY 06/23/17 Glipizide 5 mg PO DAILY 06/23/17 Megestrol Acetate [Megace -] 40 mg PO DAILY 06/26/17 Metoclopramide HCl [Reglan] 5 mg PO TID 06/26/17 Nitrofurantoin Monohyd/M-Cryst [Macrobid -] 100 mg PO BID #28 capsule 06/26/17
== END 2017-07-01 11:42 | disposition home or self-care (01) | DRG 435 ==
LOC: JER 09:08 → JERBED 14:01 → OBSVTOIN 16:51 → J5S 18:47
PROVIDERS: ADMIT Internal Medicine; ATTEND Internal Medicine
DX: C22.0 Liver cell carcinoma (principal); I81 Portal vein thrombosis; R18.8 Other ascites; E11.9 Type 2 diabetes mellitus without complications; D64.9 Anemia, unspecified; Z79.84 Long term (current) use of oral hypoglycemic drugs; R16.1 Splenomegaly, not elsewhere classified; G89.3 Neoplasm related pain (acute) (chronic)
CPT/HCPCS: 36415; 70450-TC; 71010-TC; 74177-TC; 76705-TC; 80053; 81003; 81015; 82105; 83605; 83690; 83735; 85025; 85384; 85610; 85730; 86301; 86704; 86705; 86706; 86708; 86803; 87086; 87186; 87340; 88305-TC; 88342-TC; 93005; 93010; 99283-25; G0378; J1644